=== PATIENT | male | born 1990 | race Caucasian/White ===

== ENCOUNTER 2025-05-10 17:54 | Emergency (ER) | payer MEDICAID, OTHER ==
[~2025-05-10] VITALS: Ht 165.1 cm; Wt 69.0 kg
[2025-05-10] MEDS ORDERED: LIDOCAINE HCL/EPINEPHRINE 1%-EPI 1:100,000 20ML VIAL INFIL ONE (18:30)
[2025-05-10] MEDS: MORPHINE SULFATE 2 MG/ML INJ (NOT FOR IM USE) IV ONE (19:17)
[2025-05-10] MEDS: TETANUS, DIPHTHERIA, PERTUSSIS VAC/PF 0.5ML (>10YR OLD) IM ONE (19:18)
[2025-05-10 19:25] LABS: BASOPHILS % 0.6 % (0.0-2.0); EOSINOPHILS % 0.7 % (0.0-5.0); HEMATOCRIT. 41.1 % (42.0-52.0); HEMOGLOBIN. 12.9 g/dL (14.0-18.0); LYMPHOCYTES % 9.5 % (20.0-50.0); MEAN PLATELET VOLUME 8.7 fl (7.4-10.4); MONOCYTES % 5.2 % (2.0-8.0); NEUTROPHILS % 84.0 % (40.0-76.0); PLATELET 274 x1000/uL (130-400); RED BLOOD CELL COUNT 5.23 mill/uL (4.7-6.1); RED CELL DISTRIBUTION WIDTH 17.2 % (11.6-14.6)
[2025-05-10 19:41] LABS: CREATININE 1.1 mg/dL (0.6-1.3); ETHANOL BLOOD < 10 mg/dL (<10); UREA NITROGEN BLOOD 10 mg/dL (9-23)
[2025-05-10 19:42] LABS: PROTEIN TOTAL 7.0 g/dL (6.0-8.3)
[2025-05-10 19:43] LABS: ASPARTATE AMINOTRANSFERASE 24 IU/L (<34); BILIRUBIN DIRECT 0.1 mg/dL (<=3.0); BILIRUBIN TOTAL 0.4 mg/dL (0.1-1.0)
[2025-05-10] MEDS: ONDANSETRON HCL 4MG/2ML INJ IV ONE (20:45)
[2025-05-10 21:10] VITALS: PULSE 56; RESP 19; O2SAT 100
[2025-05-10 21:19] VITALS: O2SAT 100
[2025-05-10] MEDS: PROPOFOL 10MG/ML 100ML 100 ML IV SCH (21:19)
[2025-05-10 21:20] VITALS: BP 131/88; PULSE 48; RESP 22; TEMP 36.4; O2SAT 100
[2025-05-10] MEDS ORDERED: LORAZEPAM 2MG/ML UD SYRINGE ONE (21:25)
[2025-05-10] MEDS ORDERED: LORAZEPAM 2MG/ML UD SYRINGE IV NR (21:25)
[2025-05-10] MEDS ORDERED: FENTANYL 2500MCG/250ML PMX 250 ML IV ONE (21:30)
[2025-05-10] MEDS ORDERED: FENTANYL 2500MCG/250ML PMX 250 ML IV PRN (21:45)
== END 2025-05-10 21:43 | disposition short-term general hospital (02) ==
LOC: ER 17:54
DX: S06.6XAA Traumatic subarachnoid hemorrhage with loss of consciousness status unknown, initial encounter (principal); S02.92XA Unspecified fracture of facial bones, initial encounter for closed fracture; X58.XXXA Exposure to other specified factors, initial encounter; Y93.89 Activity, other specified; Y92.89 Other specified places as the place of occurrence of the external cause; Y99.8 Other external cause status
CPT/HCPCS: 80076; 80048; 80320; 85025; 36415; 71045; 70450; 70486; 72125; 90715; 31500; 94070; 90471; 96374; 96375; 99291; J2004; J2060; J2405; J2704; J2270; Z7610 ×4; 94002; J3010; G0480